=== PATIENT | male | born 1995 | race Caucasian/White ===

== ENCOUNTER 2018-11-25 00:50 | Emergency (ER) | payer BC, SELFPAY ==
[2018-11-25] MEDS ORDERED: Ondansetron PF 4 MG/2 ML Vial ONE (00:58)
== END 2018-11-25 04:03 | disposition home or self-care (01) ==
LOC: ERS 00:50
DX: F10.129 Alcohol abuse with intoxication, unspecified (principal); R11.2 Nausea with vomiting, unspecified
CPT/HCPCS: 96361; 96374; J2405